=== PATIENT | male | born 1960 | race Caucasian/White ===

== ENCOUNTER 2022-05-21 09:44 | Emergency (ER) | payer OTHER, SELFPAY ==
[2022-05-21 09:55] VITALS: BP 124/74; PULSE 72; RESP 16; TEMP 36.4; O2SAT 100
--- NOTE | 2022-05-21 10:22 | ED.GENADULT ---
HPI - General Adult General Chief complaint: Eye Problems Stated complaint: fb in right eye Source: patient Mode of arrival: ambulatory Limitations: no limitations History of Present Illness HPI narrative: Patient presents for evaluation of sensation of foreign body in the right eye. He indicates he was grinding metal 3 days ago when he felt what he thought to be a piece of metal go into his eye. He was wearing protective eyewear at that time. Since that time he notes irritation and tearing. He denies any pain or visual disturbance. He attempted to irrigate the eye without resolution of his symptoms or after. Date of last tetanus unknown. He is not diabetic. He smokes 10 cigarettes per day. No additional complaints or concerns. Related Data Allergies Allergy/AdvReac Type Severity Reaction Status Date / Time No Known Allergies Allergy Uncoded 12/17/18 18:51 Review of Systems Review of Systems: CONSTITUTIONAL: Denies fever, chills, or sweats. EYES: Reports irritation and tearing to the right eye. Denies visual disturbance. ENT: Denies rhinorrhea, congestion, sore throat, or otalgia. CARDIOVASCULAR: Denies chest pain, palpitations, or edema. RESPIRATORY: Denies cough or dyspnea. GASTROINTESTINAL: Denies abdominal pain, nausea, vomiting, or diarrhea. GENITOURINARY: Denies dysuria or hematuria. SKIN: Denies rash or itching. MUSCULOSKELETAL: Denies back pain, joint pain, or myalgia. NEUROLOGIC: Denies headache, numbness, dizziness, or weakness. PSYCHIATRIC: Denies anxiety or depression. [facility] Past Medical History Medical History No pertinent past medical history Surgical History Surgical History No pertinent past surgical history Family History Family History Mother Family history non-contributory Social History Social History Smoking packs per day: 0.5 Smoking cigarettes per day: 10.0 Smoking status: Current every day smoker Substance use: never Additional living arrangements comments: Lives with his boss Gender identity (if verbalized by the patient): Male Spiritual care concerns: No Exam Narrative: GENERAL: Well-appearing, well-nourished, and in no acute distress. HEAD: Normocephalic, atraumatic. EYES: PERRLA and EOMI. There is tearing noted from right eye. No dye uptake noted with fluorescein stain and Wood's lamp evaluation ENT: Nares clear, no rhinorrhea or epistaxis. Mucous membranes moist. Oropharynx without tonsillar hypertrophy exudate or other lesions. Bilateral TMs pearly santo nonbulging NECK: Supple. No adenopathy or masses. No carotid bruits or JVD CHEST: Clear to auscultation. No respiratory distress. No wheezes rales or rhonchi HEART: Regular rate and rhythm. No murmur heard. Normal peripheral pulses. ABDOMEN: Soft, nontender, nondistended, normal active bowel sounds. EXTREMITIES: Normal range of motion. No edema. SKIN: Warm, dry, no rash. NEURO: No focal deficits. Alert and oriented x3. PSYCH: Normal mood and affect. Course Course Emergency Course: This is a 62-year-old male who presented for evaluation of right eye irritation. There is no dye uptake with fluorescein and Wood's lamp evaluation. I do not appreciate a foreign body present. He was updated on tetanus. Will discharge with erythromycin. Follow-up outpatient for further evaluation treatment and go to the ER for worsening symptoms. Patient in agreement with plan of care. Level of Care: Express Care Visit Vital Signs Vital signs: Vital Signs Temperature 36.4 C 05/21/22 09:55 Pulse Rate 72 05/21/22 09:55 Respiratory Rate 16 05/21/22 09:55 Blood Pressure 124/74 05/21/22 09:55 Pulse Oximetry 100 05/21/22 09:55 Oxygen Delivery Room Air 05/21/22 09:55
[2022-05-21] MEDS: TETANUS,DIPHTHERIA,AC PERTUSSIS ADULT (0.5 ML) BOOSTRIX IM (10:25)
== END 2022-05-21 10:34 | disposition home or self-care (01) ==
PROVIDERS: Emergency Provider Nurse Practitioner; PCP Emergency Medicine
DX: H57.89 Other specified disorders of eye and adnexa (principal); F17.210 Nicotine dependence, cigarettes, uncomplicated; Z23 Encounter for immunization
CPT/HCPCS: 90471; 90715; 99203; A9270; G0463